=== PATIENT | male | born 1960 | race Caucasian/White ===

== ENCOUNTER → 2017-06-18 | Outpatient (CLI) | payer OTHER ==
[~2017-06-18] MED LIST: ATIVAN0.5 MG; HYDROCODON-ACE1 EAC7; LIDOCAINE VISC100 ML; TESSALON PERLE100 MG
--- NOTE | 2017-07-05 18:57 | PROC ---
[address] [address] PROCEDURE REPORT Name: FEDERICO BELL Room: [facility]#: [id number] Admission: 06/18/17 Attend Phys: Jimi Cornell MD Discharge: Date of : 60 Report #: [id number] THIS REPORT FOR: //name// CC: Jimi Iniguez MD DATE OF PROCEDURE: 06/18/2017 [facility] REFERRING PHYSICIANS: Include Haun Schneider MD; Dr. Iniguez; as well as Dr. Ewing. 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 Staging workup is still underway. PROCEDURE: Nasopharyngolaryngoscopy. FINDINGS: On nasopharyngolaryngoscopy, after application of 2% viscous lidocaine orally and 2% viscous lidocaine to the left nostril via a cotton swab, there were no suspicious visible lesions in the nasopharynx or posterior oropharynx. The hypopharynx, had a visible lesion involving the right pyriform sinus area. It was thickened compared to the left side, but otherwise the true vocal cords were normally mobile bilaterally and they did not have any suspicious lesions. So, the patient has findings consistent with pyriform sinus cancer and he is going to be scheduled for a staging workup as well as treatment. Thank you for allowing me to participate in the care of this patient. <ELECTRONICALLY SIGNED> By: Jimi Cornell MD 07/05/17 1857 [id number] [id number] Cornell MD /nt
--- NOTE | 2017-07-05 19:09 | ONC ---
[place] [address] RADIATION ONCOLOGY NOTE Name: FEDERICO BELL Room: [facility]#: [id number] Admission: 06/18/17 Attend Phys: Jimi Cornell MD Discharge: Date of : 60 Report #: [id number] THIS REPORT FOR: //name// CC: Jimi Schneider MD RADIATION ONCOLOGY CONSULTATION NOTE DATE OF CONSULTATION: 06/18/2017. [facility] REFERRING PHYSICIANS: 1. Huan Schneider MD 2. Jorge Iniguez MD 3. 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 Staging workup is pending at this point. HISTORY OF PRESENT ILLNESS: The patient says he has had a headache since about October 2016 and he has had painful swallowing since about February 2017. Ultimately he was referred to the ear, nose and throat physicians and he was found to have a lesion involving the piriform sinus. Dr. Schneider performed a biopsy on 06/02/2017 of the right piriform sinus and the pathology revealed a poorly differentiated invasive squamous cell carcinoma that was P16 positive. He presents to discuss treatment options. PAST MEDICAL HISTORY AND PAST SURGICAL HISTORY: Includes history of migraine headaches. He had an inguinal hernia repair on 11/01/2016. He has a history of hiatal hernia. FAMILY HISTORY: Father had prostate cancer. He also had throat cancer and skin cancer. SOCIAL HISTORY: He is a fire alarm technologist. He is . He lives with his spouse. Ethanol: he has an alcohol containing drink about every 3-4 months. Cigarettes: he smokes 1 pack or less of cigarettes per day for 35 years. ALLERGIES: No known drug allergies. REVIEW OF SYSTEMS: GENERAL: He says he may have had a little bit of weight loss or weight gain, [place] [address] RADIATION ONCOLOGY NOTE Name: FEDERICO BELL Room: [facility]#: [id number] Admission: 06/18/17 Attend Phys: Jimi Cornell MD Discharge: Date of : 60 Report #: [id number] but overall his weight has not really changed. SKIN: During the dry weather he gets nosebleeds, which resolve with pressure. LYMPH NODES: He does not have enlarged lymph nodes. He just has pain on the right side of his throat that is tender on that side. ENDOCRINE: He has a dry mouth. HEMATOLOGY: He had tnosebleeds about 3 times over the past 2 weeks, which have resolved on their own. MUSCULOSKELETAL: He has chronic arthritis with painful swollen joints and cramping. HEAD AND NECK: He has headaches, vertigo that is chronic. He has tinnitus that is chronic and these recent nosebleeds during dry weather. RESPIRATORY: He has a nonproductive cough that is rare and intermittent. CARDIOVASCULAR: He denied any palpitations. GASTROINTESTINAL: Depending on what he eats he has diarrhea or tea-colored urine if he does not drink that much water. NEUROLOGIC: He has possible restless leg syndrome, possibly, and he complains causes balance issues. PHYSICAL EXAMINATION: VITAL SIGNS: Height 6 feet 3 inches, weight 189.2 pounds, blood pressure 130/90, pulse 61, respirations 20. LYMPH NODES: He has no cervical, supraclavicular lymphadenopathy. GENERAL PSYCHIATRIC: He is alert, oriented, in no acute distress. Eyes: Pupils were equal, round, reactive to light and accommodation. Extraocular movements were intact. HENT: On nasopharyngolaryngoscopy, after application of 2% viscous lidocaine to the mouth and 2% viscous lidocaine to the left nostril, there were no visible lesions in the nasopharynx or posterior oropharynx. There was thickening of the right piriform sinus, the true vocal cords were normally mobile bilaterally without any visible lesions. HEART: Had a regular rate and rhythm without murmur. LUNGS: were clear to auscultation. ABDOMEN: Not tender. Spleen was not palpable. Liver was at the costal margin. EXTREMITIES: Had no clubbing, cyanosis or edema. NEUROLOGIC: Cranial nerves 2-12 were intact. Sensation was intact. He had 5/5 strength in his extremities. ASSESSMENT AND PLAN: His piriform sinus cancer and staging is pending. He was told the options include primary radiation therapy, reserving surgery for salvage. People can try to proceed with surgical resection, but it may be difficult to obtain negative margins and postoperative radiation therapy could follow surgery. The local control data with radiation therapy for T1-T2 piriform sinus cancer can be found at [facility] where the 5-year actuarial local control was about 85%. The local regional failures for N1b disease was about 43% for T1-T2 tumor, so the risks, benefits and logistics of radiation therapy were explained to the patient in detail. We gave his witnessed, informed consent to proceed with radiation therapy. Lab work, a dental referral, as well as a PET/CT was ordered [place] [address] RADIATION ONCOLOGY NOTE Name: FEDERICO BELL Room: [facility]#: [id number] Admission: 06/18/17 Attend Phys: Jimi Cornell MD Discharge: Date of : 60 Report #: [id number] referred to a medical oncologist. If it is locally advanced, he may also get chemotherapy. The patient gave his witnessed, informed consent to proceed with radiation therapy. He will be a good candidate for intensity modulated radiation therapy. Thank you very much for this consult. <ELECTRONICALLY SIGNED> By: Jimi Cornell MD 07/05/17 [id number] Cornell MD /nt
== END ==
LOC: M.RTH 03:09
DX: C30.0 Malignant neoplasm of nasal cavity (principal)

== ENCOUNTER → 2017-08-01 | Outpatient (CLI) | payer OTHER ==
[~2017-08-01] VITALS: Ht 190.5 cm; Wt 82.1 kg
[2017-08-01] VITALS (7 sets, daily range): BP systolic 116–130; BP diastolic 69–78
== END | disposition home or self-care (01) ==
LOC: M.INT 10:30
DX: Z43.1 Encounter for attention to gastrostomy (principal); C12 Malignant neoplasm of pyriform sinus; G89.3 Neoplasm related pain (acute) (chronic); Z98.890 Other specified postprocedural states; Z87.891 Personal history of nicotine dependence; Z79.891 Long term (current) use of opiate analgesic; Z79.899 Other long term (current) drug therapy

== ENCOUNTER → 2017-10-03 | Outpatient (CLI) | payer OTHER ==
--- NOTE | 2017-10-12 14:26 | ONC ---
[address] [address] RADIATION ONCOLOGY NOTE Name: FEDERICO BELL Room: [facility]#: [id number] Admission: 10/03/17 Attend Phys: Jimi Cornell MD Discharge: Date of : 60 Report #: [id number] THIS REPORT FOR: //name// CC: Jimi Iniguez MD DATE OF SERVICE: 10/03/2017 [facility] RADIATION ONCOLOGY FOLLOWUP NOTE REFERRING PHYSICIANS: Include Jorge Iniguez MD; Huan Schneider MD and Yimi Ewing DO PRIMARY SITE AND HISTOPATHOLOGY: The patient underwent definitive radiation therapy for a stage I, T1N0M0, pyriform sinus cancer: The patient completed definitive radiation therapy on 09/05/2017. INTERVAL NOTE: He is still using his gastric tube and takes about 4 cans of dietary supplements through the tube per day. He indicated that he is able to now tolerate soft foods such as green beans and also chicken soup, so he is getting his taste back for salty foods and he is increasing his oral intake. He still has some production of some thick phlegm. He is not using any PreviDent at this point. MEDICATIONS: None. He has been able to stop all his medications. REVIEW OF SYSTEMS: RESPIRATORY: Breathing was stable. He was not short of breath during his appointment. MUSCULOSKELETAL: He has good range of motion in his upper extremities. PHYSICAL EXAMINATION: VITAL SIGNS: The patient weighed 163.6 pounds on 10/03/2017 and he was 163 pounds 9.6 ounces on 09/26/2017. On 10/03/2017, his blood pressure was 100/71, pulse 76, respirations 18, oxygen saturation was 96% on room air. LYMPH NODES: No palpable cervical or supraclavicular lymphadenopathy. HEART: Had a regular rate and rhythm without murmur. LUNGS: were clear to auscultation. HEAD, EYES, EARS, NOSE AND THROAT: Mouth had some mild mucositis in the posterior oropharynx. ABDOMEN: Gastric tube was intact. [place] [address] RADIATION ONCOLOGY NOTE Name: FEDERICO BELL Room: [facility]#: [id number] Admission: 10/03/17 Attend Phys: Jimi Cornell MD Discharge: Date of : 60 Report #: [id number] LABORATORY DATA: The patient had lab work done on 10/02/2017. Hemoglobin was 15.1, platelets were 324,000, white blood cell count was 3.9. Sodium was 136, potassium 4.6, BUN was 13, creatinine was 0.91. AST was 16, ALT 10. TSH was 1.76. RADIOLOGIC DATA: Neck CT with contrast on 10/02/2017 revealed decrease in size of the right pyriformis sinus mass, which was difficult to discretely measure and the residual asymmetry could be post-therapeutic changes. There was no cervical lymphadenopathy. ASSESSMENT AND PLAN: 1. History of pyriform sinus cancer- There is no evidence of pyriform sinus cancer at this time. The patient was given a requisition for lab work in about a month and he was asked to schedule a follow up appointment to see me afterwards. 2. Cigarette smoking- The patient indicated that he quit smoking in July 2017. 3. Dental care- The patient was given a prescription for 1.1% PreviDent gel to use for dental care. Thank you for allowing me to participate in the care of this patient. <ELECTRONICALLY SIGNED> By: Jimi Cornell MD 10/12/17 1426 1107 2142Dkae Cornell MD /nt
== END ==
LOC: M.RTH 02:34
DX: Z51.0 Encounter for antineoplastic radiation therapy (principal); F17.210 Nicotine dependence, cigarettes, uncomplicated; Z85.22 Personal history of malignant neoplasm of nasal cavities, middle ear, and accessory sinuses

== ENCOUNTER → 2017-10-31 | Outpatient (CLI) | payer OTHER ==
--- NOTE | 2017-11-09 23:37 | ONC ---
[place] [address] RADIATION ONCOLOGY NOTE Name: FEDERICO BELL Room: [facility]#: [id number] Admission: 10/31/17 Attend Phys: Jimi Cornell MD Discharge: Date of : 60 Report #: [id number] THIS REPORT FOR: //name// CC: Jimi Iniguez MD DATE OF PROCEDURE: 10/31/2017 REFERRING PHYSICIANS: Yimi Ewing DO; Huan Schneider MD and Jorge Iniguez MD [facility] phone is [phone]. PRIMARY SITE AND HISTOPATHOLOGY: The patient underwent definitive radiation therapy for a stage I, T1 N0 M0, pyriform sinus cancer. The patient completed definitive radiation therapy on 09/05/2017. PROCEDURE: Nasopharyngolaryngoscopy. FINDINGS: On nasopharyngolaryngoscopy, after application of 2% viscous lidocaine orally and 2% viscous lidocaine to the left nostril via a cotton swab, there were no suspicious visible lesions in the nasopharynx or posterior oropharynx, and the hypopharynx had no visible lesions. There were no visible lesions in the right pyriform sinus area or the left pyriform sinus area. The true vocal cords were normally mobile bilaterally with no visible lesions. There was no evidence of head and neck cancer. Thank you for allowing me to participate in the care of this patient. <ELECTRONICALLY SIGNED> By: Jimi Cornell MD 11/09/17 2337 1837 2215Jimi Cornell MD /nt
--- NOTE | 2017-11-09 23:41 | ONC ---
[place] [address] RADIATION ONCOLOGY NOTE Name: FEDERICO BELL Room: [facility]#: [id number] Admission: 10/31/17 Attend Phys: Jimi Cornell MD Discharge: Date of : 60 Report #: [id number] THIS REPORT FOR: //name// CC: Jimi Iniguez MD DATE OF SERVICE: 10/31/2017 REFERRING PHYSICIANS: Include Huan Lunsford MD and Jorge Iniguez MD [facility] phone is [phone]. PRIMARY SITE AND HISTOPATHOLOGY: The patient underwent definitive radiation therapy for a stage I, T1 N0 M0 pyriform sinus cancer. The patient completed definitive radiation therapy on 09/05/2017: INTERVAL NOTE: The patient continues to take about four cans of dietary supplements through his gastric tube. He is also eating soft foods such as green beans and chicken soup. He is using a fluoride gel. MEDICATIONS: None. REVIEW OF SYSTEMS: RESPIRATORY: Breathing was stable. He was not short of breath during his appointment. MUSCULOSKELETAL: He has good range of motion of his upper extremities. PHYSICAL EXAMINATION: VITAL SIGNS: 161.8 pounds on 10/31/2017, 163.6 pounds on 10/03/2016 and on 10/31/2017, blood pressure was 103/70, pulse 92, oxygen saturation 97% and respirations 20. LYMPH NODES: The patient had no palpable cervical or supraclavicular lymphadenopathy. HEART: Had a regular rate and rhythm without murmur. LUNGS: were clear to auscultation. HEAD. EYES, EARS, NOSE AND THROAT: Mouth has no suspicious visible lesions or suspicious palpable lesions. On nasopharyngolaryngoscopy after application of a small amount of 2% viscous lidocaine orally and 2% viscous lidocaine to the left nostril via a cotton swab, there were no suspicious visible lesions in the nasopharynx or posterior oropharynx. The hypopharynx had no suspicious visible lesions. There were no suspicious lesions in the right pyriform [place] [address] RADIATION ONCOLOGY NOTE Name: FEDERICO BELL [place] Room: [facility]#: [id number] Admission: 10/31/17 Attend Phys: Jimi Cornell MD Discharge: Date of : 60 Report #: [id number] suspicious lesions in the left pyriform sinus. The true vocal cords were normally mobile bilaterally without any visible lesions. HEART: Heart had a regular rate and rhythm without murmur. LUNGS: were clear to auscultation. ABDOMEN: Gastric tube was intact. LABORATORY DATA: From 10/27/2017, hemoglobin 15, platelets 327,000, white blood cell count was 4. Sodium 138, potassium 4.7, BUN 12 and creatinine 0.98. TSH 1.57. RADIOLOGIC DATA: The patient had a neck CT on 10/02/2017 and there was a decrease in the right pyriform sinus mass and that was no longer discretely measurable. So mostly there were post-treatment changes with no cervical lymphadenopathy. ASSESSMENT AND PLAN: 1. History of pyriform sinus cancer- There is no evidence of pyriform sinus cancer at this time. Lab work and a PET/CT were ordered in 11/2017. The patient was asked to schedule a followup appointment to see me afterwards. 2. Dental care- The patient continues to use PreviDent gel for dental care. 3. Nutrition- The patient was asked to try to transition to all oral feedings and keep his weight stable and a complete blood count and basic metabolic panel was ordered in 11/2017. The patient was asked to schedule a followup appointment to see me afterwards. Thank you for allowing me to participate in the care of this patient. <ELECTRONICALLY SIGNED> By: Jimi Cornell MD 11/09/17 2341 1846 2239Dawolfgang Cornell MD /nt
== END ==
LOC: M.RTH 04:32
DX: Z08 Encounter for follow-up examination after completed treatment for malignant neoplasm (principal); Z85.22 Personal history of malignant neoplasm of nasal cavities, middle ear, and accessory sinuses

== ENCOUNTER → 2017-11-11 | Outpatient (CLI) | payer OTHER | END | disposition home or self-care (01) | LOC: M.INT 11:49 | DX: Z43.1 Encounter for attention to gastrostomy (principal) ==

== ENCOUNTER → 2017-12-12 | Outpatient (CLI) | payer OTHER ==
--- NOTE | 2017-12-21 15:58 | ONC ---
[address] [address] RADIATION ONCOLOGY NOTE Name: FEDERICO BELL Room: [facility]#: [id number] Admission: 12/12/17 Attend Phys: Jimi Cornell MD Discharge: Date of : 60 Report #: [id number] THIS REPORT FOR: //name// CC: Jimi Iniguez MD DATE OF SERVICE: 12/12/2017 REFERRING PHYSICIANS: Yimi Ewing DO; Huan Schneider MD and Jorge Iniguez MD. [facility] phone is [phone]. PRIMARY SITE AND HISTOPATHOLOGY: The patient underwent definitive radiation therapy for a stage I, T1N0M0 pyriform sinus cancer. The patient completed definitive radiation therapy on 09/05/2017. PROCEDURE: Nasopharyngolaryngoscopy. FINDINGS: On nasopharyngolaryngoscopy after application of 2% viscous lidocaine orally and 2% viscous lidocaine to the left nostril via a cotton swab, there were no suspicious visible lesions in the nasopharynx or posterior oropharynx. The Hypopharynx had no visible lesions. There were no visible lesions in the right pyriform sinus area or left piriform sinus area. The true vocal cords were normally mobile bilaterally with no visible lesions. The patient has mild supraglottic edema. There was no evidence of head and neck cancer. Thank you for allowing me to participate in the care of this patient. <ELECTRONICALLY SIGNED> By: Jimi Cornell MD 12/21/17 1558 1037 0130Jimi Cornell MD /nt
--- NOTE | 2017-12-21 16:18 | ONC ---
[address] [address] RADIATION ONCOLOGY NOTE Name: FEDERICO BELL Room: [facility]#: [id number] Admission: 12/12/17 Attend Phys: Jimi Cornell MD Discharge: Date of : 60 Report #: [id number] THIS REPORT FOR: //name// CC: Jimi Iniguez MD DATE OF SERVICE: 12/12/2017 REFERRING PHYSICIANS: Yimi Ewing DO; Huan Schneider MD and Jorge Iniguez MD. [facility] phone is [phone]. PRIMARY SITE AND HISTOPATHOLOGY: The patient underwent definitive radiation therapy for a stage I, T1N0M0 pyriform sinus cancer. The patient completed definitive radiation therapy on 09/05/2017. INTERVAL NOTE: The patient is able to eat a regular diet. He eats steak and potatoes. He had his gastric tube removed about 1 month ago. He feels like he may have a stricture since sometimes food feels like "it gets stuck" when he tries to swallow it. He was interested in having an esophageal dilation. He is using his fluoride gel. He still has a small tender area on the right side of the tongue near one of his fillings. MEDICATIONS: He does use 1.1% fluoride gel for dental care. 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 Ethanol: he used to ocassionally drink alcohol containing drinks. Cigarettes: he used to smoke 1 pack or less of cigarettes per day for 35 years. He continues to smoke about 3-4 cigarettes per day. REVIEW OF SYSTEMS: RESPIRATORY: Breathing was stable. He was not short of breath during his appointment. MUSCULOSKELETAL: He had good range of motion of his upper extremities. PHYSICAL EXAMINATION: VITAL SIGNS: The patient weighed 161.4 pounds on 12/12/2017 and 161.8 pounds on 10/31/2017. On 12/12/2017, blood pressure was 102/83, pulse 94, oxygen saturation 99%, respirations 20. LYMPH NODES: The patient had no palpable cervical or supraclavicular lymphadenopathy. HEART: Had a regular rate and rhythm without murmur. LUNGS: were clear to auscultation. HEAD, EYES, EARS, NOSE AND THROAT: Mouth had no suspicious visible lesions or suspicious palpable lesions. He does have a small area of mucositis on the right side of the tongue [place] [address] RADIATION ONCOLOGY NOTE Name: FEDERICO BELL Room: [facility]#: [id number] Admission: 12/12/17 Attend Phys: Jimi Cornell MD Discharge: Date of : 60 Report #: [id number] post-treatment changes. On nasopharyngolaryngoscopy after application of a small amount of 2% viscous lidocaine orally and 2% viscous lidocaine to the left nostril via a cotton swab, there were no suspicious visible lesions in the nasopharynx or posterior oropharynx. The hypopharynx had no suspicious visible lesions. There were no suspicious lesions in the right piriform sinus. The true vocal cords were normally mobile bilaterally without visible lesions. The patient had some mild supraglottic edema. LABORATORY DATA: From 12/11/2017, hemoglobin 14.9, platelets 319,000, white blood cell counts were 5.0. Sodium 137, potassium 4.4, BUN was 15, creatinine 0.87. TSH was 2.68. RADIOLOGIC DATA: PET/CT scan from 12/11/2017 revealed no PET/CT evidence of residual or recurrent tumor or metastatic disease. ASSESSMENT AND PLAN: 1. History of pyriform sinus cancer- There is no evidence of pyriform sinus cancer at this time. A basic metabolic panel and TSH were ordered in about 3 months and the patient was asked to schedule a followup appointment to see me afterwards. 2. Cigarette smoking -- the patient was asked to try to quit smoking cigarettes. 3. Presumed esophageal stricture- The patient will be referred to the [facility] lead, Dr. Son or Dr. Richter, to evaluate the patient for possible esophageal dilation. 4. Dental care- The patient uses PreviDent gel for dental care. He applies this to his teeth using a toothbrush. Thank you for allowing me to participate in the care of this patient. <ELECTRONICALLY SIGNED> By: Jimi Cornell MD 12/21/17 1618 1047 0141Dkae Cornell MD /nt
== END ==
LOC: M.RTH 03:37
DX: Z08 Encounter for follow-up examination after completed treatment for malignant neoplasm (principal); F17.210 Nicotine dependence, cigarettes, uncomplicated; Z85.22 Personal history of malignant neoplasm of nasal cavities, middle ear, and accessory sinuses

== ENCOUNTER → 2018-03-18 | Outpatient (CLI) | payer OTHER ==
--- NOTE | ~2018-03-18 | ONC ---
[place] [address] RADIATION ONCOLOGY NOTE Name: FEDERICO BELL Room: [facility]#: [id number] Admission: 03/18/18 Attend Phys: Jimi Cornell MD Discharge: Date of : 60 Report #: [id number] THIS REPORT FOR: //name// CC: Jimi Ewing DATE OF SERVICE: 03/18/2018 REFERRING PHYSICIANS: Juliana Richter MD; Yimi Ewing DO; Huan Schneider MD; Jorge Iniguez MD. [facility] phone is [phone]. PRIMARY SITE AND HISTOPATHOLOGY: The patient underwent definitive radiation therapy for stage 1 T1N0M0, piriform sinus cancer. The patient completed definitive radiation therapy on 09/05/2017. PROCEDURE: Nasopharyngolaryngoscopy. FINDINGS: On nasopharyngolaryngoscopy after application of 2% viscous lidocaine orally and 2% viscous lidocaine to left nostril via cotton swab, there were no visible lesions in the nasopharynx or posterior pharynx. In the hypopharynx, no visible lesions. There were no visible lesions in the right piriform sinus area or left piriform sinus area. The true vocal cords were normally mobile bilaterally with no visible lesions. There was no evidence of head and neck cancer. Thank you for allowing me to participate in the care of this patient. By: [id number] 1642DMD enid Be
--- NOTE | ~2018-03-18 | ONC ---
[address] [address] RADIATION ONCOLOGY NOTE Name: FEDERICO BELL Room: [facility]#: [id number] Admission: 03/18/18 Attend Phys: Jimi Cornell MD Discharge: Date of : 60 Report #: [id number] THIS REPORT FOR: //name// CC: Jimi Ewing DATE OF SERVICE: 03/18/2018 REFERRING PHYSICIANS: Dr. Yimi Ewing, Juliana Richter MD; Huan Schneider MD and Jorge Iniguez MD. [facility] phone is [phone]. PRIMARY SITE AND HISTOPATHOLOGY: The patient underwent definitive radiation therapy for stage 1, T1N0M0 pyriform sinus cancer. The patient completed definitive radiation therapy on 09/05/2017. INTERVAL NOTE: The patient is able to eat a regular diet, now he feels like he is swallowing much better after his esophageal dilation. He eats steak and potatoes. He says he is scheduled for another esophageal dilation and colonoscopy. MEDICATIONS: Include 1.1% fluoride gel for dental care. 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 Ethanol, he used to occasionally drink alcohol in the past. Cigarettes, he used to smoke 1 pack or less of cigarettes for the last about 35-38 years, since about 1979. He continues to smoke about 3-4 cigarettes per day. REVIEW OF SYSTEMS: RESPIRATORY: Breathing was stable. He was not short of breath during his appointment. MUSCULOSKELETAL: Good range of motion of his upper extremities. PHYSICAL EXAMINATION: VITAL SIGNS: The patient weighed 158.4 pounds on 03/18/2018 and 161.4 pounds on 12/12/2017. On 03/18/2018, blood pressure is 113/86, pulse 67, respirations 18, oxygen saturation 98%. LYMPH NODES: He had no palpable cervical or supraclavicular lymphadenopathy. HEART: Had a regular rate and rhythm without murmur. LUNGS: Clear to auscultation. HEAD, EYES, EARS, NOSE AND THROAT: Mouth had no suspicious visible lesions or suspicious palpable lesions. On nasopharyngolaryngoscopy, after application of a small amount of 2% viscous lidocaine orally, 2% viscous lidocaine to left nostril via cotton swab, there were no [place] [address] RADIATION ONCOLOGY NOTE Name: FEDERICO BELL Milagro Room: [facility]#: [id number] Admission: 03/18/18 Attend Phys: Jimi Cornell MD Discharge: Date of : 60 Report #: [id number] nasopharynx or posterior pharynx. The hypopharynx, there were no suspicious visible lesions. There were no suspicious visible lesions in the right piriform sinus. The true vocal cords were normally mobile bilaterally without visible lesions. There were no visible lesions in the right piriform sinus. There were no visible lesions in the left pyriform sinus. LABORATORY DATA: From 03/16/2018, sodium 140, potassium 4.3, BUN 19, creatinine 1.26. TSH was 3.020. RADIOLOGIC DATA: He had a PET/CT scan on 12/11/2017 and there is no PET/CT evidence of residual or recurrent tumor or metastatic disease. ASSESSMENT AND PLAN: 1. History of pyriform sinus cancer. There is no evidence of pyriform sinus cancer at this time. The patient was given requisition for TSH and basic metabolic panel in 05/2018, is asked to schedule a followup appointment to see me afterwards. 2. Cigarette smoking. The patient was asked to try to quit smoking cigarettes. 3. Dental care. The patient was given a prescription for PreviDent gel to use for dental care and he was told to use it regularly. Thank you for allowing me to participate in the care of this patient. By: [id number] Cornell MD /chon
== END ==
LOC: M.RTH 02:22
DX: C12 Malignant neoplasm of pyriform sinus (principal); F17.201 Nicotine dependence, unspecified, in remission; Z72.89 Other problems related to lifestyle

== ENCOUNTER → 2018-05-22 | Outpatient (CLI) | payer OTHER ==
--- NOTE | ~2018-05-22 | ONC ---
[address] [address] RADIATION ONCOLOGY NOTE Name: FEDERICO BELL Room: [facility]#: [id number] Admission: 05/22/18 Attend Phys: Jimi Cornell MD Discharge: Date of : 60 Report #: [id number] THIS REPORT FOR: //name// CC: Jimi Ewing DATE OF SERVICE: 05/22/2018 REFERRING PHYSICIANS: Dr. Yimi Ewing; Juliana Richter MD. Huan Shcneider MD. Jorge Iniguez MD. [facility] phone is [phone]. PRIMARY SITE AND HISTOPATHOLOGY: The patient underwent definitive radiation therapy for stage I, T1 N0 M0 pyriform sinus cancer. The patient completed definitive radiation therapy on 09/05/2017. INTERVAL NOTE: The patient is able to eat a regular diet. He feels like he is swallowing regularly now that he has had previous esophageal dilations. He has been able to eat foods such as steak and potatoes. MEDICATIONS: His 1.1% fluoride gel. SOCIAL HISTORY: He is a fire alarm technologist. Right now, he is going through the process of divorce. Ethanol, he used to occasionally drink alcohol in the past. Cigarettes, he says he is now down to 1-2 cigarettes per day, used to smoke 1 pack of cigarettes per day since about 1979. He is trying to quit smoking. REVIEW OF SYSTEMS: RESPIRATORY: Breathing was stable. He is not short of breath during his appointment. MUSCULOSKELETAL: He has good range of motion of his upper extremities. PHYSICAL EXAMINATION: VITAL SIGNS: The patient weighed 160.2 pounds on 05/22/2018. He was 158.4 pounds on 03/18/2018. On 05/22/2017, blood pressure 122/85, pulse 63, respirations 20, oxygen saturation 99%. LYMPH NODES: He had no palpable cervical or supraclavicular lymphadenopathy. HEART: Had a regular rate and rhythm without murmur. LUNGS: Clear to auscultation. HEAD, EYE, EAR, NOSE AND THROAT: Mouth had no suspicious visible lesions or palpable lesions. FINDINGS: On nasopharyngolaryngoscopy, after application [place] [address] RADIATION ONCOLOGY NOTE Name: FEDERICO BELL Room: [facility]#: [id number] Admission: 05/22/18 Attend Phys: Jimi Cornell MD Discharge: Date of : 60 Report #: [id number] 2% viscous lidocaine orally, 2% viscous lidocaine to left nostril via cotton swab, there were no suspicious visible lesions in the nasopharynx or posterior pharynx. The hypopharynx, no suspicious visible lesions. There are no visible lesions in the right piriform sinus. The true vocal cords are normally mobile bilaterally without visible lesions. There is no evidence of head and neck cancer. LABORATORY DATA: From 05/18/2018. TSH was 4.77, sodium 135, potassium 4.5, BUN 15, creatinine 0.91. ASSESSMENT AND PLAN: 1. History of pyriform sinus cancer. There is no evidence of pyriform sinus cancer at this time. The patient was given a requisition for basic metabolic panel and TSH in 08/2018. He was asked to schedule a followup appointment to see me afterwards. 2. Cigarette smoking. The patient was encouraged to stop smoking cigarettes. 3. Dental care. The patient was told to continue to use the PreviDent gel for dental care. Thank you for allowing me to participate in the care of this patient. By: [id number] Cornell MD /chon
--- NOTE | ~2018-05-22 | ONC ---
[place] [address] RADIATION ONCOLOGY NOTE Name: FEDERICO BELL Room: [facility]#: [id number] Admission: 05/22/18 Attend Phys: Jimi Cornell MD Discharge: Date of : 60 Report #: [id number] THIS REPORT FOR: //name// CC: Jimi Ewing REFERRING PHYSICIANS: Yimi Ewing DO. Huan Schneider MD. Jorge Iniguez MD. Juliana Richter MD. [facility] phone is [phone]. PRIMARY SITE AND HISTOPATHOLOGY: The patient underwent definitive radiation therapy for stage I T1N0M0, pyriform sinus cancer. The patient completed definitive radiation therapy on 09/05/2017. PROCEDURE: Nasopharyngolaryngoscopy. FINDINGS: On nasopharyngolaryngoscopy, after application of 2% viscous lidocaine orally and 2% viscous lidocaine to left nostril via cotton swab, there were no visible lesions in the nasopharynx or posterior pharynx, In the hypopharynx, there were no visible lesions. There were no visible lesions in the right pyriform sinus and left piriform sinus. The true vocal cords were normally mobile bilaterally with no visible lesions. There is no evidence of head and neck cancer. Thank you for allowing me to participate in the care of this patient. By: 1018 [id number] enid West
== END ==
LOC: M.RTH 08:59 → M.RAD 08:59 → M.RTH 09:00
DX: M53.3 Sacrococcygeal disorders, not elsewhere classified (principal); F17.200 Nicotine dependence, unspecified, uncomplicated; Z85.818 Personal history of malignant neoplasm of other sites of lip, oral cavity, and pharynx; Z91.81 History of falling

== ENCOUNTER → 2018-09-04 | Outpatient (CLI) | payer OTHER ==
--- NOTE | ~2018-09-04 | PROC ---
[address] [address] PROCEDURE REPORT Name: FEDERICO BELL Room: [facility]#: [id number] Admission: 09/04/18 Attend Phys: Jimi Cornell MD Discharge: Date of : 60 Report #: [id number] THIS REPORT FOR: //name// CC: Jimi Ewing DATE OF SERVICE: 09/04/2018 [facility] phone is [phone]. REFERRING PHYSICIANS: Dr. Juliana Richter, Dr. Jorge Iniguez, Dr. Huan Schneider, Dr. Yimi Ewing. PRIMARY SITE AND HISTOPATHOLOGY: The patient underwent definitive radiation therapy for a stage 1, T1 N0 M0 pyriform sinus cancer. The patient completed definitive radiation therapy on 09/05/2017. PROCEDURE: Nasopharyngolaryngoscopy. FINDINGS: On nasopharyngolaryngoscopy, after application of 2% viscous lidocaine orally and 2% viscous lidocaine to left nostril via cotton swab, there were no visible lesions in the nasopharynx or posterior pharynx. In the hypopharynx, there were no visible lesions and no visible lesions in the right pyriform sinus or left pyriform sinus. True vocal cords are normally mobile bilaterally with no visible lesions. There was no evidence of head and neck cancer. Thank you for allowing me to participate in the care of this patient. By: 1104 [id number] Cornell MD /chon
--- NOTE | ~2018-09-04 | ONC ---
[address] [address] RADIATION ONCOLOGY NOTE Name: FEDERICO BELL Room: [facility]#: [id number] Admission: 09/04/18 Attend Phys: Jimi Cornell MD Discharge: Date of : 60 Report #: [id number] THIS REPORT FOR: //name// CC: Jimi Ewing DATE OF SERVICE: 09/04/2018 TYPE OF REPORT: Radiation oncology followup note. REFERRING PHYSICIANS: 1. Juliana Richter M.D. 2. Yimi Ewing D.O. 3. Huan Schneider M.D. 4. Jorge Iniguez M.D. [facility] phone is [phone]. PRIMARY SITE AND HISTOPATHOLOGY: The patient underwent definitive radiation therapy for stage 1 T1N0M0 pyriform sinus cancer. The patient completed definitive radiation therapy on 09/05/2017. INTERVAL NOTE: The patient is able to eat a regular diet. He feels like he is eating very well after his esophageal dilations. He does indicate the last few weeks, he has had some what feels like a bladder discomfort when he has a full bladder. MEDICATIONS: The 1.1% fluoride gel. 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 Ethanol in the past. He used to have an occasional alcohol containing drinks. Cigarettes, he is still smoking up to 4 cigarettes a day and he states he is still trying to quit smoking. REVIEW OF SYSTEMS: RESPIRATORY: Breathing was stable. He is not short of breath during his appointment. MUSCULOSKELETAL: He has good range of motion of his upper extremities. PHYSICAL EXAMINATION: VITAL SIGNS: The patient weighed 165.8 pounds on 09/04/2018. He was 160.2 pounds on 05/22/2018 and on 09/04/2018, blood pressure is 114/81, pulse 85, respirations 16 and oxygen saturation 100%. LYMPH NODES: He had no palpable cervical or supraclavicular lymphadenopathy. HEAD, EYES, EARS, NOSE AND THROAT: Mouth [place] [address] RADIATION ONCOLOGY NOTE Name: FEDERICO BELL Milagro Room: [facility]#: [id number] Admission: 09/04/18 Attend Phys: Jimi Cornell MD Discharge: Date of : 60 Report #: [id number] suspicious palpable lesions on nasopharyngolaryngoscopy. The patient requested to do to have it done without Xylocaine since he does not like the flavor and he tolerated it fine without the lidocaine, so after placing the scope through the left nostril, there were no suspicious visible lesions in the nasopharynx or posterior pharynx and the hypopharynx, no visible lesions. There are no visible lesions in the right perform sinus. There were no visible lesions in the left pyriform sinus. The true vocal cords are normally mobile bilaterally without any visible lesions. LABORATORY DATA: From 08/28/2018, TSH was 4.07. Sodium 136, potassium 4.1, BUN 14 and creatinine 0.99. ASSESSMENT AND PLAN: 1. History of pyriform sinus cancer. There is no evidence of pyriform sinus cancer at this time. Requisition was written for basic metabolic panel and TSH in February 2019 and the patient was asked to follow up with me afterwards. 2. Intermittent bladder discomfort. The patient will be referred to the urologist, Dr. Tracey or his colleagues to evaluate the patient. 3. Cigarette smoking. The patient was encouraged to quit smoking cigarettes. 4. Dental care. The patient was told to continue using PreviDent gel for dental care. Thank you for allowing me to participate in the care of this patient. By: [id number] Cornell MD /nt
== END ==
LOC: M.RTH 08-28 09:00
DX: Z08 Encounter for follow-up examination after completed treatment for malignant neoplasm (principal); R39.82 Chronic bladder pain; F17.210 Nicotine dependence, cigarettes, uncomplicated; Z85.22 Personal history of malignant neoplasm of nasal cavities, middle ear, and accessory sinuses

== ENCOUNTER → 2019-03-05 | Outpatient (CLI) | payer OTHER ==
--- NOTE | ~2019-03-05 | ONC ---
[address] [address] RADIATION ONCOLOGY NOTE Name: FEDERICO BELL Room: [facility]#: [id number] Admission: 03/05/19 Attend Phys: Jimi Cornell MD Discharge: Date of : 60 Report #: [id number] THIS REPORT FOR: //name// CC: Jimi Ewing DATE OF SERVICE: 03/05/2019 RADIATION ONCOLOGY FOLLOWUP NOTE REFERRING PHYSICIANS: Juliana Richter MD; Yimi Ewing DO; Huan Schneider MD; Jorge Iniguez MD; Dr. Coppola and Dr. Zamora. [facility] phone is [phone]. PRIMARY SITE AND HISTOPATHOLOGY: The patient underwent definitive radiation therapy for stage 1 T1N0M0 pyriform sinus cancer. The patient completed definitive radiation therapy on 09/05/2018. INTERVAL NOTE: The patient is able to eat a regular diet. He feels like he is eating well after his previous esophageal dilations. The patient says he can pretty much eat almost all types of foods. He does avoid spicy tomato sauce on pasta or pizza. He said that he is being worked up by Urology for what appears to be benign prostatic hypertrophy and he says he has been started on Flomax. MEDICATIONS: At this point are PreviDent gel, omeprazole, and Flomax. 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 Cigarettes, he still smokes up to 4 cigarettes a day. He is trying to quit smoking cigarettes. REVIEW OF SYSTEMS: RESPIRATORY: Breathing was stable. He was not short of breath during his appointment. MUSCULOSKELETAL: He has good range of motion of his upper extremities. PHYSICAL EXAMINATION: VITAL SIGNS: The patient weighed 168 pounds on 03/05/2019 and 165.8 pounds on 09/04/2018 and on 03/05/2019 blood pressure was 116/75, pulse was 63, respirations were 16, and oxygen saturation was 97%. LYMPH NODES: He had no palpable cervical or supraclavicular lymphadenopathy. HEAD, EYES, EARS, NOSE AND THROAT: Mouth had no suspicious visible lesions or suspicious palpable lesions. On nasopharyngolaryngoscopy with the patient declining lidocaine, after placing the scope through the left nostril, there were no visible lesions in the nasopharynx. There were no visible lesions in the posterior pharynx and there were no visible lesions [place] [address] RADIATION ONCOLOGY NOTE Name: FEDERICO BELL Room: [facility]#: [id number] Admission: 03/05/19 Attend Phys: Jimi Cornell MD Discharge: Date of : 60 Report #: [id number]. There were no visible lesions in the right pyriform sinus. The true vocal cords are normally mobile bilaterally without any visible lesions. HEART: Had a regular rate and rhythm without murmur. LUNGS: Clear to auscultation. LABORATORY DATA: From 02/25/2019, free T4 was 0.8. His TSH was elevated at 5.89. Normal range is 0.35-5. Sodium was 141, potassium 4.3, BUN was 14, creatinine 0.83. ASSESSMENT AND PLAN: 1. History of pyriform sinus cancer. There is no evidence of pyriform sinus cancer at this time. A requisition was written for a basic metabolic panel in 08/2019 and the patient was asked to schedule a followup appointment to see me afterwards. 2. Hypothyroidism. The patient was prescribed 25 mcg of levothyroxine to start for hypothyroidism and TSH was ordered in 08/2019. He was asked to schedule a followup appointment to see me afterwards. 3. Dental care. The patient was told to continue using PreviDent gel for dental care. He was given a refill for PreviDent gel. 4. Possible benign prostatic hypertrophy, the patient follows up with his urologist. He said that plans on seeing them in 03/2019 and that they started him on Flomax. Thank you for allowing me to participate in the care of this patient. By: 1014 1054Dkae Cornell MD /chon
--- NOTE | ~2019-03-05 | ONC ---
[address] [address] RADIATION ONCOLOGY NOTE Name: FEDERICO BELL Room: [facility]#: [id number] Admission: 03/05/19 Attend Phys: Jimi Cornell MD Discharge: Date of : 60 Report #: [id number] THIS REPORT FOR: //name// CC: Jimi Ewing DATE OF SERVICE: 03/05/2019 RADIATION ONCOLOGY PROCEDURE NOTE REFERRING PHYSICIANS: Dr. Rogerio Ewing, Dr. Juliana Richter, Dr. Jorge Iniguez, Huan Schneider MD, Dr. Zamora from Urology, Dr. Coppola from Urology. PRIMARY: [facility], phone is [phone]. PRIMARY SITE AND HISTOPATHOLOGY: The patient underwent definitive radiation therapy for stage 1 T1, N0, M0 pyriform sinus cancer. The patient completed definitive radiation therapy on 09/05/2017. PROCEDURE: Nasopharyngolaryngoscopy. FINDINGS: On nasopharyngolaryngoscopy, viscous lidocaine was not used as per the patient's request. There were no visible lesions in the nasopharynx or posterior oropharynx. On the hypopharynx, there were no visible lesions. There were no visible lesions in the right piriform sinus or left piriform sinus. The true vocal cords are normally mobile bilaterally with no visible lesions. There is no evidence of head and neck cancer. Thank you for allowing me to participate in the care of this patient. By: 1004 [id number] Cornell MD /chon
== END ==
LOC: M.RTH 04:59
DX: Z08 Encounter for follow-up examination after completed treatment for malignant neoplasm (principal); E03.9 Hypothyroidism, unspecified; Z85.22 Personal history of malignant neoplasm of nasal cavities, middle ear, and accessory sinuses

== ENCOUNTER → 2019-09-03 | Outpatient (CLI) | payer OTHER ==
--- NOTE | 2019-09-04 21:42 | ONC ---
[address] [address] RADIATION ONCOLOGY NOTE Name: FEDERICO BELL Room: [facility]#: [id number] Admission: 09/03/19 Attend Phys: Jimi Cornell MD Discharge: Date of : 60 Report #: [id number] THIS REPORT FOR: //name// CC: Jimi Schneider DATE OF SERVICE: 09/03/2019 RADIATION ONCOLOGY FOLLOWUP NOTE REFERRING PHYSICIANS: Include Dr. Muñoz, Dr. Yimi Hernandez, Dr. Orin Richter, Dr. Huan Schneider. LOCATION: [facility]. Phone is [phone]. PRIMARY SITE AND HISTOPATHOLOGY: The patient underwent definitive radiation therapy for a stage I, T1 N0 M0, pyriform sinus cancer. The patient completed definitive radiation therapy on 09/05/2017. INTERVAL NOTE: The patient continues to eat a regular diet. He tries to avoid spicy foods or very dry foods like crackers. The patient indicates he is taking Flomax and Proscar for benign prostatic hypertrophy and he follows up with Dr. Muñoz. He also applies PreviDent gel to his teeth with a toothbrush. MEDICATIONS: PreviDent gel, Flomax, Proscar and 25 mcg of levothyroxine. 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 Cigarettes: he still smokes about 2 cigarettes a day. He is still trying to quit smoking. REVIEW OF SYSTEMS: RESPIRATORY: Breathing was stable. He was not short of breath during his appointment. MUSCULOSKELETAL: He has good range of motion of his upper extremities. PHYSICAL EXAMINATION: VITAL SIGNS: The patient weighed 181.4 pounds on 09/03/2019 and 168 pounds on 03/05/2019. On 09/03/2019; blood pressure was 119/85, temperature 97.1 degrees Fahrenheit, pulse 54, oxygen saturation 100%, respirations 16. LYMPH NODES: He had no palpable cervical or supraclavicular lymphadenopathy. HEAD, EYES, EARS, NOSE AND THROAT: Mouth had no suspicious visible lesions or suspicious palpable lesions. Nasopharyngolaryngoscopy was deferred because of the COVID-19 pandemic. The patient had an indirect mirror [place]aryngoscopy, [place] [address] RADIATION ONCOLOGY NOTE Name: FEDERICO BELL Milagro Room: [facility]#: [id number] Admission: 09/03/19 Attend Phys: Jimi Cornell MD Discharge: Date of : 60 Report #: [id number] did not reveal any suspicious visible lesions. LABORATORY DATA: From 08/27/2019; sodium 141, potassium 4.1, BUN 15, creatinine 1.08 and TSH was 4.43, which was within normal limits with him taking 25 mcg of levothyroxine per day. ASSESSMENT AND PLAN: 1. History of pyriform sinus cancer- There is no evidence of pyriform sinus cancer at this time. A requisition was written for a basic metabolic panel in about 6 months and the patient was asked to schedule a follow up appointment to see me afterwards. 2. Hypothyroidism- the patient was given a refill for 25 mcg of levothyroxine for hypothyroidism. His TSH was within normal limits with him taking 25 mcg of levothyroxine per day. A TSH was ordered in about 6 months and the patient was asked to schedule a follow up appointment to see me afterwards. 3. Dental care- The patient said he had plenty of PreviDent gel at home and applies the Prevident to his teeth with a toothbrush. He was told to continue doing that. 4. Benign prostatic hypertrophy. The patient is being treated by his urologist, Dr. Muñoz, who prescribes Proscar and Flomax for him. Thank you for allowing me to participate in the care of this patient. <ELECTRONICALLY SIGNED> By: Jimi Cornell MD 09/04/19 2142 1237 [id number] Cornell MD /nt
== END ==
LOC: M.RTH 09:45
DX: Z08 Encounter for follow-up examination after completed treatment for malignant neoplasm (principal); F17.210 Nicotine dependence, cigarettes, uncomplicated; Z79.899 Other long term (current) drug therapy

== ENCOUNTER → 2020-03-03 | Outpatient (CLI) | payer OTHER ==
--- NOTE | 2020-03-04 23:05 | ONC ---
[address] [address] RADIATION ONCOLOGY NOTE Name: FEDERICO BELL Room: [facility]#: [id number] Admission: 03/03/20 Attend Phys: Jimi Cornell MD Discharge: Date of : 60 Report #: [id number] THIS REPORT FOR: //name// CC: Jimi Schneider MD DATE OF SERVICE: 03/03/2020 RADIOLOGY ONCOLOGY PROCEDURE NOTE REFERRING PHYSICIANS: Include: Micheal Muñoz MD, from Urology and also Yimi Ewing DO, as well as Juliana Richter MD, and Huan Schneider MD. [facility] phone is [phone]. PRIMARY SITE AND HISTOPATHOLOGY: The patient underwent definitive radiation therapy for a stage 1, T1 N0 M0 pyriform sinus cancer. The patient completed definitive radiation therapy on 09/05/2017. PROCEDURE: Nasopharyngolaryngoscopy. FINDINGS: On Nasopharyngolaryngoscopy via the left nostril without using viscous lidocaine as per the patient's request. There were no visible lesions in the nasopharynx or posterior oropharynx. The hypopharynx had no visible lesions. There were no visible lesions in the right piriform sinus or left piriform sinus. The true vocal cords were normally mobile bilaterally with no visible lesions. There was no evidence of head and neck cancer. Thank you for allowing me to participate in the care of this patient. <ELECTRONICALLY SIGNED> By: Jimi Cornell MD 03/04/20 2305 1125 [id number] Cornell MD /nt
--- NOTE | 2020-03-04 23:16 | ONC ---
[place] [id number] RADIATION ONCOLOGY NOTE Name: FEDERICO BELL Room: [facility]#: [id number] Admission: 03/03/20 Attend Phys: Jimi Cornell MD Discharge: Date of : 60 Report #: [id number] THIS REPORT FOR: //name// CC: Jimi Schneider MD DATE OF SERVICE: 03/03/2020 RADIATION ONCOLOGY FOLLOWUP NOTE REFERRING PHYSICIANS: Dr. Muñoz, Dr. Juliana Richter, Dr. Huan Schneider, Dr. Yimi Ewing. LOCATION: [facility]. Phone is [phone]. PRIMARY SITE AND HISTOPATHOLOGY: The patient underwent definitive radiation therapy for a stage I, T1N0M0, pyriform sinus cancer. The patient completed definitive radiation therapy on 09/05/2017. INTERVAL NOTE: The patient is eating a regular diet. He feels like his taste has continued to improve. The patient takes Flomax and Proscar for benign prostatic hypertrophy and follows up with his urologist, Dr. Muñoz. He is not always compliant with taking his 25 mcg of levothyroxine at this point. He applies PreviDent gel to his teeth with a toothbrush. MEDICATIONS: PreviDent gel, Flomax, Proscar, and 125 mcg of levothyroxine per day. 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 Cigarettes: he still smokes about 2-5 cigarettes a day. He is still trying to quit smoking. REVIEW OF SYSTEMS: RESPIRATORY: Breathing was stable. He was not short of breath during his appointment. MUSCULOSKELETAL: He has good range of motion of his upper extremities. PHYSICAL EXAMINATION: VITAL SIGNS: The patient weighed 189 pounds on 03/03/2020, he was 181.4 pounds on 09/03/2019, on 03/03/2020, blood pressure was 139/78, pulse 68, respirations 16, temperature 98.5 degrees Fahrenheit, oxygen saturation was 98%. LYMPH NODES: He had no palpable cervical or supraclavicular lymphadenopathy. HEAD, EYES, EARS, NOSE AND THROAT: Mouth [place] [id number] RADIATION ONCOLOGY NOTE Name: FEDERICO BELL Milagro Room: [facility]#: [id number] Admission: 03/03/20 Attend Phys: Jimi Cornell MD Discharge: Date of : 60 Report #: [id number] suspicious palpable lesions and on nasopharyngolaryngoscopy via the left nostril without using any lidocaine as per the patient's request, there were no suspicious visible lesions in the nasopharynx or posterior oropharynx. There were no visible lesions in the right pyriform sinus or left pyriform sinus. The true vocal cords were normally mobile bilaterally. HEART: Had a regular rate and rhythm without murmur. LUNGS: were clear to auscultation. LABORATORY DATA: TSH was slightly elevated at 5.88 that was done on 02/25/2020. Free T4 of 0.9. Sodium was 137, potassium 3.8, BUN 9, creatinine 1.02, calcium 8.9. ASSESSMENT AND PLAN: 1. History of pyriform sinus cancer- There is no evidence of pyriform sinus cancer at this time. A requisition was written for a basic metabolic panel in about 6 months and he was asked to schedule a followup appointment to see me afterwards. 2. Hypothyroidism- The patient is not always compliant with taking his 25 mcg of levothyroxine per day. So, he was asked to try to be compliant with taking the 25 mcg of levothyroxine per day and he was given a refill for 25 mcg of levothyroxine per day and a TSH was ordered in about 6 months. The patient was asked to schedule a followup appointment to see me afterwards. 3. Dental care- The patient was given a prescription for PreviDent paste to use for dental care. 4. Benign prostatic hypertrophy- The patient is being treated by his urologist, Dr. Muñoz, who prescribes Flomax for him. Thank you for allowing me to participate in the care of this patient. <ELECTRONICALLY SIGNED> By: Jimi Cornell MD 03/04/20 [id number] Cornell MD /nt
== END ==
LOC: M.RTH 10:17
PROVIDERS: ATTEND Radiology Radiation Oncology
DX: Z08 Encounter for follow-up examination after completed treatment for malignant neoplasm (principal); E03.9 Hypothyroidism, unspecified; N40.1 Benign prostatic hyperplasia with lower urinary tract symptoms; Z85.22 Personal history of malignant neoplasm of nasal cavities, middle ear, and accessory sinuses; Z92.3 Personal history of irradiation

== ENCOUNTER 2020-10-01 17:25 | Emergency (ER) | payer OTHER ==
[~2020-10-01] VITALS: Ht 190.5 cm; Wt 83.0 kg
[2020-10-01] MEDS ORDERED: LEVO-T25 MCG PO (17:39)
[2020-10-01] MEDS ORDERED: OTHER (17:40)
[2020-10-01] MEDS ORDERED: CEPHALEXIN500 MG PO (18:39)
[2020-10-01 18:47] VITALS: BP 144/88
== END 2020-10-01 18:48 | disposition home or self-care (01) ==
LOC: M.ERS 17:25
DX: M79.662 Pain in left lower leg (principal); L53.9 Erythematous condition, unspecified; E03.9 Hypothyroidism, unspecified; K58.9 Irritable bowel syndrome, unspecified

== ENCOUNTER → 2021-03-02 | Outpatient (CLI) | payer OTHER ==
[~2021-03-02] MED LIST changes: +CEPHALEXIN500 MG PO; +LEVO-T25 MCG PO; +OTHER
== END ==
LOC: M.RAD 07:46 → M.WC 07:46
PROVIDERS: ATTEND Family Medicine
DX: M27.8 Other specified diseases of jaws (principal); L59.8 Other specified disorders of the skin and subcutaneous tissue related to radiation; K58.9 Irritable bowel syndrome, unspecified; E03.9 Hypothyroidism, unspecified; N40.0 Benign prostatic hyperplasia without lower urinary tract symptoms; Z87.891 Personal history of nicotine dependence; Z85.22 Personal history of malignant neoplasm of nasal cavities, middle ear, and accessory sinuses; Z98.890 Other specified postprocedural states; Z79.899 Other long term (current) drug therapy; Y84.2 Radiological procedure and radiotherapy as the cause of abnormal reaction of the patient, or of later complication, without mention of misadventure at the time of the procedure

== ENCOUNTER → 2021-03-19 | Outpatient (CLI) | payer OTHER | LOC: M.WC 09:13 | PROVIDERS: ATTEND Family Medicine | DX: M27.8 Other specified diseases of jaws (principal); L59.8 Other specified disorders of the skin and subcutaneous tissue related to radiation; K58.9 Irritable bowel syndrome, unspecified; E03.9 Hypothyroidism, unspecified; N40.0 Benign prostatic hyperplasia without lower urinary tract symptoms; K21.9 Gastro-esophageal reflux disease without esophagitis; Z87.891 Personal history of nicotine dependence; Z85.22 Personal history of malignant neoplasm of nasal cavities, middle ear, and accessory sinuses; Y84.2 Radiological procedure and radiotherapy as the cause of abnormal reaction of the patient, or of later complication, without mention of misadventure at the time of the procedure ==

== ENCOUNTER → 2021-03-20 | Outpatient (CLI) | payer OTHER | LOC: M.WC 07:31 | PROVIDERS: ATTEND Emergency Medicine Undersea and Hyperbaric Medicine | DX: L59.8 Other specified disorders of the skin and subcutaneous tissue related to radiation (principal); M27.8 Other specified diseases of jaws; K58.9 Irritable bowel syndrome, unspecified; E03.9 Hypothyroidism, unspecified; N40.0 Benign prostatic hyperplasia without lower urinary tract symptoms; Z85.22 Personal history of malignant neoplasm of nasal cavities, middle ear, and accessory sinuses; Z87.891 Personal history of nicotine dependence; Z98.890 Other specified postprocedural states; Y84.2 Radiological procedure and radiotherapy as the cause of abnormal reaction of the patient, or of later complication, without mention of misadventure at the time of the procedure ==

== ENCOUNTER → 2021-03-22 | Outpatient (CLI) | payer OTHER | LOC: M.WC 09:11 | PROVIDERS: ATTEND Family Medicine | DX: L59.8 Other specified disorders of the skin and subcutaneous tissue related to radiation (principal); M27.8 Other specified diseases of jaws; K58.9 Irritable bowel syndrome, unspecified; E03.9 Hypothyroidism, unspecified; N40.0 Benign prostatic hyperplasia without lower urinary tract symptoms; Z85.22 Personal history of malignant neoplasm of nasal cavities, middle ear, and accessory sinuses; Z87.891 Personal history of nicotine dependence; Z98.890 Other specified postprocedural states; Y84.2 Radiological procedure and radiotherapy as the cause of abnormal reaction of the patient, or of later complication, without mention of misadventure at the time of the procedure ==

== ENCOUNTER → 2021-03-23 | Outpatient (CLI) | payer OTHER | LOC: M.WC 07:42 | PROVIDERS: ATTEND Family Medicine | DX: L59.8 Other specified disorders of the skin and subcutaneous tissue related to radiation (principal); M27.8 Other specified diseases of jaws; K58.9 Irritable bowel syndrome, unspecified; E03.9 Hypothyroidism, unspecified; N40.0 Benign prostatic hyperplasia without lower urinary tract symptoms; Z85.22 Personal history of malignant neoplasm of nasal cavities, middle ear, and accessory sinuses; Z87.891 Personal history of nicotine dependence; Z98.890 Other specified postprocedural states; Y84.2 Radiological procedure and radiotherapy as the cause of abnormal reaction of the patient, or of later complication, without mention of misadventure at the time of the procedure ==

== ENCOUNTER → 2021-03-26 | Outpatient (CLI) | payer OTHER | LOC: M.WC 07:30 | PROVIDERS: ATTEND Surgery | DX: L59.8 Other specified disorders of the skin and subcutaneous tissue related to radiation (principal); M27.8 Other specified diseases of jaws; M85.80 Other specified disorders of bone density and structure, unspecified site; K58.9 Irritable bowel syndrome, unspecified; E03.9 Hypothyroidism, unspecified; N40.0 Benign prostatic hyperplasia without lower urinary tract symptoms; Z85.22 Personal history of malignant neoplasm of nasal cavities, middle ear, and accessory sinuses; Z87.891 Personal history of nicotine dependence; Z98.890 Other specified postprocedural states; Y84.2 Radiological procedure and radiotherapy as the cause of abnormal reaction of the patient, or of later complication, without mention of misadventure at the time of the procedure ==

== ENCOUNTER → 2021-03-27 | Outpatient (CLI) | payer OTHER | LOC: M.WC 07:35 | PROVIDERS: ATTEND Emergency Medicine Undersea and Hyperbaric Medicine | DX: L59.8 Other specified disorders of the skin and subcutaneous tissue related to radiation (principal); M27.8 Other specified diseases of jaws; M85.80 Other specified disorders of bone density and structure, unspecified site; K58.9 Irritable bowel syndrome, unspecified; E03.9 Hypothyroidism, unspecified; N40.0 Benign prostatic hyperplasia without lower urinary tract symptoms; Z85.22 Personal history of malignant neoplasm of nasal cavities, middle ear, and accessory sinuses; Z87.891 Personal history of nicotine dependence; Y84.2 Radiological procedure and radiotherapy as the cause of abnormal reaction of the patient, or of later complication, without mention of misadventure at the time of the procedure ==

== ENCOUNTER → 2021-03-28 | Outpatient (CLI) | payer OTHER | LOC: M.WC 08:00 | PROVIDERS: ATTEND Internal Medicine | DX: L59.8 Other specified disorders of the skin and subcutaneous tissue related to radiation (principal); M27.8 Other specified diseases of jaws; M85.80 Other specified disorders of bone density and structure, unspecified site; K58.9 Irritable bowel syndrome, unspecified; E03.9 Hypothyroidism, unspecified; N40.0 Benign prostatic hyperplasia without lower urinary tract symptoms; Z85.22 Personal history of malignant neoplasm of nasal cavities, middle ear, and accessory sinuses; Z87.891 Personal history of nicotine dependence; Y84.2 Radiological procedure and radiotherapy as the cause of abnormal reaction of the patient, or of later complication, without mention of misadventure at the time of the procedure ==

== ENCOUNTER → 2021-03-29 | Outpatient (CLI) | payer OTHER | LOC: M.WC 07:36 | PROVIDERS: ATTEND Family Medicine | DX: L59.8 Other specified disorders of the skin and subcutaneous tissue related to radiation (principal); M27.8 Other specified diseases of jaws; M85.80 Other specified disorders of bone density and structure, unspecified site; K58.9 Irritable bowel syndrome, unspecified; E03.9 Hypothyroidism, unspecified; N40.0 Benign prostatic hyperplasia without lower urinary tract symptoms; Z85.22 Personal history of malignant neoplasm of nasal cavities, middle ear, and accessory sinuses; Z87.891 Personal history of nicotine dependence; Y84.2 Radiological procedure and radiotherapy as the cause of abnormal reaction of the patient, or of later complication, without mention of misadventure at the time of the procedure ==

== ENCOUNTER → 2021-03-30 | Outpatient (CLI) | payer OTHER | LOC: M.WC 07:22 | PROVIDERS: ATTEND Family Medicine | DX: L59.8 Other specified disorders of the skin and subcutaneous tissue related to radiation (principal); M27.8 Other specified diseases of jaws; K58.9 Irritable bowel syndrome, unspecified; E03.9 Hypothyroidism, unspecified; N40.0 Benign prostatic hyperplasia without lower urinary tract symptoms; Z85.818 Personal history of malignant neoplasm of other sites of lip, oral cavity, and pharynx; Z87.891 Personal history of nicotine dependence; Z98.890 Other specified postprocedural states; Y84.2 Radiological procedure and radiotherapy as the cause of abnormal reaction of the patient, or of later complication, without mention of misadventure at the time of the procedure ==

== ENCOUNTER → 2021-04-02 | Outpatient (CLI) | payer OTHER | LOC: M.WC 07:33 | PROVIDERS: ATTEND Surgery | DX: L59.8 Other specified disorders of the skin and subcutaneous tissue related to radiation (principal); M27.8 Other specified diseases of jaws; M85.80 Other specified disorders of bone density and structure, unspecified site; K58.9 Irritable bowel syndrome, unspecified; E03.9 Hypothyroidism, unspecified; N40.0 Benign prostatic hyperplasia without lower urinary tract symptoms; Z85.818 Personal history of malignant neoplasm of other sites of lip, oral cavity, and pharynx; Z87.891 Personal history of nicotine dependence; Z98.890 Other specified postprocedural states; Y84.2 Radiological procedure and radiotherapy as the cause of abnormal reaction of the patient, or of later complication, without mention of misadventure at the time of the procedure ==

== ENCOUNTER → 2021-04-03 | Outpatient (CLI) | payer OTHER | LOC: M.WC 07:38 | PROVIDERS: ATTEND Emergency Medicine Undersea and Hyperbaric Medicine | DX: L59.8 Other specified disorders of the skin and subcutaneous tissue related to radiation (principal); M27.8 Other specified diseases of jaws; K58.9 Irritable bowel syndrome, unspecified; E03.9 Hypothyroidism, unspecified; N40.0 Benign prostatic hyperplasia without lower urinary tract symptoms; Z85.22 Personal history of malignant neoplasm of nasal cavities, middle ear, and accessory sinuses; Z87.891 Personal history of nicotine dependence; Z98.890 Other specified postprocedural states; Y84.2 Radiological procedure and radiotherapy as the cause of abnormal reaction of the patient, or of later complication, without mention of misadventure at the time of the procedure ==

== ENCOUNTER → 2021-04-04 | Outpatient (CLI) | payer OTHER | LOC: M.WC 07:38 | PROVIDERS: ATTEND Surgery | DX: L59.8 Other specified disorders of the skin and subcutaneous tissue related to radiation (principal); M27.8 Other specified diseases of jaws; K58.9 Irritable bowel syndrome, unspecified; E03.9 Hypothyroidism, unspecified; N40.0 Benign prostatic hyperplasia without lower urinary tract symptoms; Z85.22 Personal history of malignant neoplasm of nasal cavities, middle ear, and accessory sinuses; Z87.891 Personal history of nicotine dependence; Z98.890 Other specified postprocedural states; Y84.2 Radiological procedure and radiotherapy as the cause of abnormal reaction of the patient, or of later complication, without mention of misadventure at the time of the procedure ==

== ENCOUNTER → 2021-04-05 | Outpatient (CLI) | payer OTHER | LOC: M.WC 07:33 | PROVIDERS: ATTEND Family Medicine | DX: L59.8 Other specified disorders of the skin and subcutaneous tissue related to radiation (principal); M27.8 Other specified diseases of jaws; K58.9 Irritable bowel syndrome, unspecified; E03.9 Hypothyroidism, unspecified; N40.0 Benign prostatic hyperplasia without lower urinary tract symptoms; Z85.22 Personal history of malignant neoplasm of nasal cavities, middle ear, and accessory sinuses; Z87.891 Personal history of nicotine dependence; Z98.890 Other specified postprocedural states; Y84.2 Radiological procedure and radiotherapy as the cause of abnormal reaction of the patient, or of later complication, without mention of misadventure at the time of the procedure ==

== ENCOUNTER → 2021-04-06 | Outpatient (CLI) | payer OTHER | LOC: M.WC 07:39 | PROVIDERS: ATTEND Family Medicine | DX: L59.8 Other specified disorders of the skin and subcutaneous tissue related to radiation (principal); M27.8 Other specified diseases of jaws; K58.9 Irritable bowel syndrome, unspecified; E03.9 Hypothyroidism, unspecified; N40.0 Benign prostatic hyperplasia without lower urinary tract symptoms; Z85.22 Personal history of malignant neoplasm of nasal cavities, middle ear, and accessory sinuses; Z87.891 Personal history of nicotine dependence; Y84.2 Radiological procedure and radiotherapy as the cause of abnormal reaction of the patient, or of later complication, without mention of misadventure at the time of the procedure ==

== ENCOUNTER → 2021-04-09 | Outpatient (CLI) | payer OTHER | LOC: M.WC 07:36 | PROVIDERS: ATTEND Surgery | DX: L59.8 Other specified disorders of the skin and subcutaneous tissue related to radiation (principal); M27.8 Other specified diseases of jaws; K58.9 Irritable bowel syndrome, unspecified; E03.9 Hypothyroidism, unspecified; N40.0 Benign prostatic hyperplasia without lower urinary tract symptoms; Z85.22 Personal history of malignant neoplasm of nasal cavities, middle ear, and accessory sinuses; Z87.891 Personal history of nicotine dependence; Z98.890 Other specified postprocedural states; Y84.2 Radiological procedure and radiotherapy as the cause of abnormal reaction of the patient, or of later complication, without mention of misadventure at the time of the procedure ==

== ENCOUNTER → 2021-04-10 | Outpatient (CLI) | payer OTHER | LOC: M.WC 07:36 | PROVIDERS: ATTEND Emergency Medicine Undersea and Hyperbaric Medicine | DX: L59.8 Other specified disorders of the skin and subcutaneous tissue related to radiation (principal); M27.8 Other specified diseases of jaws; K58.9 Irritable bowel syndrome, unspecified; E03.9 Hypothyroidism, unspecified; N40.0 Benign prostatic hyperplasia without lower urinary tract symptoms; Z85.22 Personal history of malignant neoplasm of nasal cavities, middle ear, and accessory sinuses; Z87.891 Personal history of nicotine dependence; Z98.890 Other specified postprocedural states; Y84.2 Radiological procedure and radiotherapy as the cause of abnormal reaction of the patient, or of later complication, without mention of misadventure at the time of the procedure ==

== ENCOUNTER → 2021-04-11 | Outpatient (CLI) | payer OTHER | LOC: M.WC 07:48 | PROVIDERS: ATTEND Surgery | DX: L59.8 Other specified disorders of the skin and subcutaneous tissue related to radiation (principal); M27.8 Other specified diseases of jaws; K58.9 Irritable bowel syndrome, unspecified; E03.9 Hypothyroidism, unspecified; N40.0 Benign prostatic hyperplasia without lower urinary tract symptoms; Z85.22 Personal history of malignant neoplasm of nasal cavities, middle ear, and accessory sinuses; Z87.891 Personal history of nicotine dependence; Z98.890 Other specified postprocedural states; Y84.2 Radiological procedure and radiotherapy as the cause of abnormal reaction of the patient, or of later complication, without mention of misadventure at the time of the procedure ==

== ENCOUNTER → 2021-04-12 | Outpatient (CLI) | payer OTHER | LOC: M.WC 04-11 07:45 | PROVIDERS: ATTEND Family Medicine | DX: L59.8 Other specified disorders of the skin and subcutaneous tissue related to radiation (principal); M27.8 Other specified diseases of jaws; K58.9 Irritable bowel syndrome, unspecified; E03.9 Hypothyroidism, unspecified; N40.0 Benign prostatic hyperplasia without lower urinary tract symptoms; Z85.22 Personal history of malignant neoplasm of nasal cavities, middle ear, and accessory sinuses; Z98.890 Other specified postprocedural states; Z87.891 Personal history of nicotine dependence; Z79.899 Other long term (current) drug therapy; Y84.2 Radiological procedure and radiotherapy as the cause of abnormal reaction of the patient, or of later complication, without mention of misadventure at the time of the procedure ==

== ENCOUNTER → 2021-04-16 | Outpatient (CLI) | payer OTHER | LOC: M.WC 07:40 | PROVIDERS: ATTEND Surgery | DX: L59.8 Other specified disorders of the skin and subcutaneous tissue related to radiation (principal); M27.8 Other specified diseases of jaws; K58.9 Irritable bowel syndrome, unspecified; E03.9 Hypothyroidism, unspecified; N40.0 Benign prostatic hyperplasia without lower urinary tract symptoms; Z85.22 Personal history of malignant neoplasm of nasal cavities, middle ear, and accessory sinuses; Z87.891 Personal history of nicotine dependence; Y84.2 Radiological procedure and radiotherapy as the cause of abnormal reaction of the patient, or of later complication, without mention of misadventure at the time of the procedure ==

== ENCOUNTER → 2021-04-17 | Outpatient (CLI) | payer OTHER | LOC: M.WC 07:47 | PROVIDERS: ATTEND Emergency Medicine Undersea and Hyperbaric Medicine | DX: L59.8 Other specified disorders of the skin and subcutaneous tissue related to radiation (principal); M27.8 Other specified diseases of jaws; K58.9 Irritable bowel syndrome, unspecified; E03.9 Hypothyroidism, unspecified; N40.0 Benign prostatic hyperplasia without lower urinary tract symptoms; Z85.22 Personal history of malignant neoplasm of nasal cavities, middle ear, and accessory sinuses; Z87.891 Personal history of nicotine dependence; Z98.890 Other specified postprocedural states; Y84.2 Radiological procedure and radiotherapy as the cause of abnormal reaction of the patient, or of later complication, without mention of misadventure at the time of the procedure ==

== ENCOUNTER → 2021-04-18 | Outpatient (CLI) | payer OTHER | LOC: M.WC 07:37 | PROVIDERS: ATTEND Surgery | DX: L59.8 Other specified disorders of the skin and subcutaneous tissue related to radiation (principal); M27.8 Other specified diseases of jaws; K58.9 Irritable bowel syndrome, unspecified; E03.9 Hypothyroidism, unspecified; N40.0 Benign prostatic hyperplasia without lower urinary tract symptoms; Z85.22 Personal history of malignant neoplasm of nasal cavities, middle ear, and accessory sinuses; Z87.891 Personal history of nicotine dependence; Z98.890 Other specified postprocedural states; Y84.2 Radiological procedure and radiotherapy as the cause of abnormal reaction of the patient, or of later complication, without mention of misadventure at the time of the procedure ==

== ENCOUNTER → 2021-04-23 | Outpatient (CLI) | payer OTHER | LOC: M.WC 08:00 | PROVIDERS: ATTEND Surgery | DX: L59.8 Other specified disorders of the skin and subcutaneous tissue related to radiation (principal); M27.8 Other specified diseases of jaws; M87.88 Other osteonecrosis, other site; E03.9 Hypothyroidism, unspecified; N40.0 Benign prostatic hyperplasia without lower urinary tract symptoms; K58.9 Irritable bowel syndrome, unspecified; Z85.22 Personal history of malignant neoplasm of nasal cavities, middle ear, and accessory sinuses; Z87.891 Personal history of nicotine dependence; Y84.2 Radiological procedure and radiotherapy as the cause of abnormal reaction of the patient, or of later complication, without mention of misadventure at the time of the procedure ==

== ENCOUNTER → 2021-04-24 | Outpatient (CLI) | payer OTHER | LOC: M.WC 07:47 | PROVIDERS: ATTEND Surgery | DX: L59.8 Other specified disorders of the skin and subcutaneous tissue related to radiation (principal); M27.8 Other specified diseases of jaws; M87.88 Other osteonecrosis, other site; E03.9 Hypothyroidism, unspecified; N40.0 Benign prostatic hyperplasia without lower urinary tract symptoms; K58.9 Irritable bowel syndrome, unspecified; Z85.22 Personal history of malignant neoplasm of nasal cavities, middle ear, and accessory sinuses; Z87.891 Personal history of nicotine dependence; Y84.2 Radiological procedure and radiotherapy as the cause of abnormal reaction of the patient, or of later complication, without mention of misadventure at the time of the procedure ==

== ENCOUNTER → 2021-04-25 | Outpatient (CLI) | payer OTHER | LOC: M.WC 07:40 | PROVIDERS: ATTEND Surgery | DX: L59.8 Other specified disorders of the skin and subcutaneous tissue related to radiation (principal); M27.8 Other specified diseases of jaws; M87.88 Other osteonecrosis, other site; E03.9 Hypothyroidism, unspecified; N40.0 Benign prostatic hyperplasia without lower urinary tract symptoms; K58.9 Irritable bowel syndrome, unspecified; Z85.22 Personal history of malignant neoplasm of nasal cavities, middle ear, and accessory sinuses; Z87.891 Personal history of nicotine dependence; Y84.2 Radiological procedure and radiotherapy as the cause of abnormal reaction of the patient, or of later complication, without mention of misadventure at the time of the procedure ==

== ENCOUNTER → 2021-04-26 | Outpatient (CLI) | payer OTHER | LOC: M.WC 07:46 | PROVIDERS: ATTEND Family Medicine | DX: L59.8 Other specified disorders of the skin and subcutaneous tissue related to radiation (principal); M27.8 Other specified diseases of jaws; M87.88 Other osteonecrosis, other site; E03.9 Hypothyroidism, unspecified; N40.0 Benign prostatic hyperplasia without lower urinary tract symptoms; K58.9 Irritable bowel syndrome, unspecified; Z85.22 Personal history of malignant neoplasm of nasal cavities, middle ear, and accessory sinuses; Z87.891 Personal history of nicotine dependence; Y84.2 Radiological procedure and radiotherapy as the cause of abnormal reaction of the patient, or of later complication, without mention of misadventure at the time of the procedure ==

== ENCOUNTER → 2021-04-27 | Outpatient (CLI) | payer OTHER | LOC: M.WC 07:29 | PROVIDERS: ATTEND Family Medicine | DX: L59.8 Other specified disorders of the skin and subcutaneous tissue related to radiation (principal); M27.8 Other specified diseases of jaws; K58.9 Irritable bowel syndrome, unspecified; E03.9 Hypothyroidism, unspecified; N40.0 Benign prostatic hyperplasia without lower urinary tract symptoms; Z85.22 Personal history of malignant neoplasm of nasal cavities, middle ear, and accessory sinuses; Z98.890 Other specified postprocedural states; Y84.2 Radiological procedure and radiotherapy as the cause of abnormal reaction of the patient, or of later complication, without mention of misadventure at the time of the procedure ==

== ENCOUNTER → 2021-04-30 | Outpatient (CLI) | payer OTHER | LOC: M.WC 08:00 | PROVIDERS: ATTEND Surgery | DX: L59.8 Other specified disorders of the skin and subcutaneous tissue related to radiation (principal); M27.8 Other specified diseases of jaws; K58.9 Irritable bowel syndrome, unspecified; E03.9 Hypothyroidism, unspecified; N40.0 Benign prostatic hyperplasia without lower urinary tract symptoms; Z85.22 Personal history of malignant neoplasm of nasal cavities, middle ear, and accessory sinuses; Z87.891 Personal history of nicotine dependence; Z98.890 Other specified postprocedural states; Y84.2 Radiological procedure and radiotherapy as the cause of abnormal reaction of the patient, or of later complication, without mention of misadventure at the time of the procedure ==

== ENCOUNTER → 2021-05-01 | Outpatient (CLI) | payer OTHER | LOC: M.WC 07:56 | PROVIDERS: ATTEND Surgery | DX: L59.8 Other specified disorders of the skin and subcutaneous tissue related to radiation (principal); M27.8 Other specified diseases of jaws; E03.9 Hypothyroidism, unspecified; N40.0 Benign prostatic hyperplasia without lower urinary tract symptoms; K58.9 Irritable bowel syndrome, unspecified; Z85.22 Personal history of malignant neoplasm of nasal cavities, middle ear, and accessory sinuses; Y84.2 Radiological procedure and radiotherapy as the cause of abnormal reaction of the patient, or of later complication, without mention of misadventure at the time of the procedure ==

== ENCOUNTER → 2021-05-02 | Outpatient (CLI) | payer OTHER | LOC: M.WC 08:00 | PROVIDERS: ATTEND Internal Medicine | DX: L59.8 Other specified disorders of the skin and subcutaneous tissue related to radiation (principal); M27.8 Other specified diseases of jaws; M87.88 Other osteonecrosis, other site; E03.9 Hypothyroidism, unspecified; N40.0 Benign prostatic hyperplasia without lower urinary tract symptoms; K58.9 Irritable bowel syndrome, unspecified; Z85.22 Personal history of malignant neoplasm of nasal cavities, middle ear, and accessory sinuses; Y84.2 Radiological procedure and radiotherapy as the cause of abnormal reaction of the patient, or of later complication, without mention of misadventure at the time of the procedure ==

== ENCOUNTER → 2021-05-03 | Outpatient (CLI) | payer OTHER | LOC: M.WC 07:29 | PROVIDERS: ATTEND Family Medicine | DX: L59.8 Other specified disorders of the skin and subcutaneous tissue related to radiation (principal); M27.8 Other specified diseases of jaws; M87.88 Other osteonecrosis, other site; E03.9 Hypothyroidism, unspecified; N40.0 Benign prostatic hyperplasia without lower urinary tract symptoms; K58.9 Irritable bowel syndrome, unspecified; Z85.22 Personal history of malignant neoplasm of nasal cavities, middle ear, and accessory sinuses; Y84.2 Radiological procedure and radiotherapy as the cause of abnormal reaction of the patient, or of later complication, without mention of misadventure at the time of the procedure ==

== ENCOUNTER → 2021-05-04 | Outpatient (CLI) | payer OTHER | LOC: M.WC 07:42 | PROVIDERS: ATTEND Family Medicine | DX: L59.8 Other specified disorders of the skin and subcutaneous tissue related to radiation (principal); M27.8 Other specified diseases of jaws; M87.88 Other osteonecrosis, other site; E03.9 Hypothyroidism, unspecified; N40.0 Benign prostatic hyperplasia without lower urinary tract symptoms; K58.9 Irritable bowel syndrome, unspecified; Z85.22 Personal history of malignant neoplasm of nasal cavities, middle ear, and accessory sinuses; Y84.2 Radiological procedure and radiotherapy as the cause of abnormal reaction of the patient, or of later complication, without mention of misadventure at the time of the procedure ==